=== PATIENT | female | born 2000 | race Caucasian/White ===

== ENCOUNTER 2019-02-11 00:15 | Day surgery (SDC) | payer OTHER ==
[2019-02-11 01:06] VITALS: BMI 25.1
[2019-02-11 01:22] VITALS: BP 129/62
[2019-02-11] MEDS ORDERED: hydrALAZINE 20 MG/ML VIAL SLOW IVP PRN (02:21)
--- NOTE | 2019-02-11 02:48 | PDOC.FPROB ---
FMR OB H&P: HPI - History of Present Illness Chief Complaint: Contractions Indentification: 18 year old at 31.5 wks History of Present Illness: 18 year old at 31.5 wks with JUSTINE of 04/10/2019 presents with painful contractions q4 min since 22:30. Patient reports she was on her feet all day and also went swimming. She usually drinks around 6 cups of water per day, but she maybe had 3 today. Patient denies vaginal bleeding, vaginal discharge, LoF. Her has been uncomplicated. She does state the contractions have eased up over the last several hours, but they are still present. Patient endorses movement. Primary Care Physician: Dr. Martínez FMR OB H&P: Current - Care : 1 Para: 0 Gestational age: 31.5 wks Due date: 04/10/2019 FMR OB H&P: History - Past Medical History PMH: Hx UTI's - OB History OB History: Uncomplicated G1 - ENTERER History ENTERER History: Gonorrhea in 2017, treated - Surgical History Sx History: Spurgeon teeth removal in 2017 - Social History Social History: Denies alcohol, tobacco, or drug use - Family History Family History: Denies pertinent family history. FMR OB H&P: Medications - Current Home Medications: Medication Instructions Recorded Confirmed Type Pnv No.103/Folic/Om3s/Fish Oil 1 each PO DAILY 02/11/19 02/11/19 History [ Gummies] Allergies/Adverse Reactions: Allergies Allergy/AdvReac Type Severity Reaction Status Date / Time No Known Allergies Allergy Verified 02/11/19 01:03 FMR OB H&P: ROS - Review of Systems General: denies: fever/chills, weight/appetite/sleep changes Eyes: denies: vision changes, scotomas ENT: denies: nasal congestion, rhinorrhea, sore throat Cardiovascular: denies: chest pain, palpitation, edema Respiratory: denies: cough, congestion, shortness of breath Gastrointestinal: reports: diarrhea. denies: abdominal pain, nausea, vomiting Genitourinary (Female): reports: contractions. denies: dysuria, vaginal discharge, vaginal bleeding Musculoskeletal: denies: pain, tenderness Neurologic: denies: numbness, syncope Integumentary: denies: itching, rash, lesions Hematologic/Lymphatic: denies: prolonged or excessive bleeding Psychological: denies: depression, anxiety FMR OB H&P: Vital Signs - Maternal Vital signs: Vital Signs - First Documented Pulse Resp BP Pulse Ox 96 18 129/62 100 02/11/19 01:00 02/11/19 01:00 02/11/19 01:00 02/11/19 01:00 - Heart Tones Baseline: 140 Variability: moderate Acceleration: present Deceleration: absent Category: category 1 [place] contractions every: q3-4 min FMR OB H&P: Physical Exam - Physical Exam General: NAD, awake, alert and oriented HEENT: EOMI, MMM, grossly normal vision, grossly normal hearing Heart: RRR, no murmurs/rubs/gallops General: CTAB, no respiratory distress Abdomen: soft, gravid, non-tender Musculoskeletal: pulses present, FROM in all four extremities Neurological: no tremor, no focal deficit Skin: no rash, capillary refill <2 seconds Lymphatic: no unusual bruising or bleeding Psychiatric: intact recent and remote memory, good judgement and insight, normal mood and affect - Pelvic Exam Vulva: normal hair distribution, appropriate rah stage, no discharge, no blood SVE: closed/thick/high FMR OB H&P: A/P - Problem List (1) uterine contractions in third trimester, antepartum Status: Acute Code(s): O47.03 - FALSE LABOR BEFORE 37 COMPLETED WEEKS OF GEST , THIRD TRI (2) Status: Acute Disposition: 18 year old at 31.5 wks presents with contractions 1. with contractions - Likely 2/2 dehydration - PO hydration, counseled on water intake in - FFN collected, but not sent; TVUS shows cervical length between 3.1-3.3 cm - Cervical exam closed/thick/high - PTL ruled out Dispo: Plan for d/c home. Encourage PO hydration. Labor precautions provided. Discussion: Date/Time: 02/11/19245 This H&P was discussed with Dr. Aguirre who agrees with the above documentation and plan. OBGYN Attending: I have reviewed the case and the patient. No evidence TRUE PTL as CX still >3, per algorithm...FFN not indicated. OK for outpatient care. Signature: Essie Coleman, PGY-3
--- NOTE | 2019-02-11 05:50 | ULT ---
LIMITED OBSTETRICAL ULTRASOUND: INDICATIONS: Evaluation cervical length and pre-term contractions. COMPARISON: None. FINDINGS: There is a single live intrauterine gestation in a cephalic presentation. The placenta is anterior i n location without overt evidence of previa. Cardiac activity measures 136 beats per minute. Transl abial evaluation of the cervix demonstrates the cervix to measure 3.15 to 3.33 cm without overt evide nce of funneling. IMPRESSION: Cervical length of 3.15 to 3.33 cm without evidence of funneling. POS: BH
== END 2019-02-11 03:15 | disposition home or self-care (01) ==
LOC: L&D/OP 00:15
PROVIDERS: ATTEND Family Medicine
DX: O47.03 False labor before 37 completed weeks of gestation, third trimester (principal); Z3A.31 31 weeks gestation of pregnancy; Z87.440 Personal history of urinary (tract) infections
CPT/HCPCS: 76815; 99283